=== PATIENT | female | born 1985 | race Caucasian/White ===

== ENCOUNTER → 2019-10-17 14:48 | Outpatient (BNVA) | payer MEDICAID, SELFPAY | PROVIDERS: Family Provider Nurse Practitioner Family; Visit Provider Psychiatry & Neurology Psychiatry | DX: F41.1 Generalized anxiety disorder (principal); F11.20 Opioid dependence, uncomplicated; F12.20 Cannabis dependence, uncomplicated; F17.200 Nicotine dependence, unspecified, uncomplicated; F33.2 Major depressive disorder, recurrent severe without psychotic features; F43.12 Post-traumatic stress disorder, chronic | CPT/HCPCS: 99204 ==

== ENCOUNTER → 2019-10-21 09:12 | Outpatient (BNVA) | payer MEDICAID, SELFPAY | PROVIDERS: Family Provider Nurse Practitioner Family; Visit Provider Psychiatry & Neurology Psychiatry | DX: F12.20 Cannabis dependence, uncomplicated (principal); F11.20 Opioid dependence, uncomplicated; F17.200 Nicotine dependence, unspecified, uncomplicated; F33.2 Major depressive disorder, recurrent severe without psychotic features; F41.1 Generalized anxiety disorder; F43.12 Post-traumatic stress disorder, chronic | CPT/HCPCS: 99213 ==

== ENCOUNTER → 2019-11-04 08:30 | Outpatient (BNVA) | payer MEDICAID, SELFPAY | PROVIDERS: Family Provider Nurse Practitioner Family; Visit Provider Psychiatry & Neurology Psychiatry | DX: F33.2 Major depressive disorder, recurrent severe without psychotic features (principal); F43.12 Post-traumatic stress disorder, chronic; F12.20 Cannabis dependence, uncomplicated; F11.20 Opioid dependence, uncomplicated; F17.200 Nicotine dependence, unspecified, uncomplicated; F41.1 Generalized anxiety disorder | CPT/HCPCS: 99214 ==

== ENCOUNTER → 2019-12-01 08:26 | Outpatient (BNVA) | payer MEDICAID, SELFPAY | PROVIDERS: Family Provider Nurse Practitioner Family; Visit Provider Psychiatry & Neurology Psychiatry | DX: F43.12 Post-traumatic stress disorder, chronic (principal); F33.2 Major depressive disorder, recurrent severe without psychotic features; F11.20 Opioid dependence, uncomplicated; F17.200 Nicotine dependence, unspecified, uncomplicated; F12.20 Cannabis dependence, uncomplicated; F41.1 Generalized anxiety disorder | CPT/HCPCS: 99213 ==

== ENCOUNTER → 2019-12-02 14:58 | Outpatient (BNVA) | payer MEDICAID, SELFPAY | PROVIDERS: Family Provider Nurse Practitioner Family; Visit Provider Psychiatry & Neurology Psychiatry | DX: F11.20 Opioid dependence, uncomplicated (principal) | CPT/HCPCS: 80306 ==

== ENCOUNTER → 2019-12-14 08:23 | Outpatient (BNVA) | payer MEDICAID, SELFPAY | PROVIDERS: Family Provider Nurse Practitioner Family; Visit Provider Psychiatry & Neurology Psychiatry | DX: F33.2 Major depressive disorder, recurrent severe without psychotic features (principal); F41.1 Generalized anxiety disorder; F17.200 Nicotine dependence, unspecified, uncomplicated; F43.12 Post-traumatic stress disorder, chronic | CPT/HCPCS: 99213 ==

== ENCOUNTER 2020-01-27 07:11 | Outpatient (CLI) | payer MEDICAID, SELFPAY ==
--- NOTE | 2020-01-27 07:26 | USCV_ITS ---
Oneida Sampson Age: 34 Gender: F : 1985 Exam Date: 01/27/2020 07:44 Ordering Phys: Travis Freeman MD ([email or web address]) Technologist: Penny Kendrick Exam Location: [facility] [place] Indication: TRICUSPID ENDOCARDITIS WITH BOVINE VALVE REPLACEMENT BP: / HR: 50 Rhythm: Sinus Technical Quality: Adequate MEASUREMENTS (Male / Female) Normal Values 2D ECHO LV Diastolic Diameter PLAX 3.8 cm 4.2 - 5.9 / 3.9 - 5.3 cm LV Systolic Diameter PLAX 3.1 cm LV Chamber Size 3.1 cm IVS Diastolic Thickness 0.9 cm 0.6 - 1.0 / 0.6 - 0.9 cm IVS Systolic Thickness 1.0 cm LVPW Diastolic Thickness 0.8 cm 0.6 - 1.0 / 0.6 - 0.9 cm LVPW Systolic Thickness 1.0 cm RV Chamber Size 2.2 cm LVOT Diameter 2.0 cm LV Ejection Fraction 2D Teich 40.5 % LV Ejection Fraction MOD 2C 75.7 % LV Ejection Fraction 2C AL 75.3 % LA Diameter 2.4 cm LA Width 2.9 cm LA Height 3.5 cm RA Width 3.2 cm RA Height 3.7 cm Aorta at Sinotubular Diameter 2.6 cm M-MODE LV Diastolic Diameter MM 3.6 cm 4.2 - 5.9 / 3.9 - 5.3 cm LV Systolic Diameter MM 2.1 cm LV Ejection Fraction MM Teich 72.5 % IVS Diastolic Thickness MM 0.7 cm 0.6 - 1.0 / 0.6 - 0.9 cm IVS Systolic Thickness MM 1.2 cm LVPW Diastolic Thickness MM 1.0 cm 0.6 - 1.0 / 0.6 - 0.9 cm LVPW Systolic Thickness MM 1.1 cm RV Diastolic Diameter MM 1.4 cm Aortic Annulus Diameter 2.9 cm LA Ao Ratio MM 1.1 MV E Point Septal Separation 0.5 cm DOPPLER AV Peak Velocity 137.0 cm/s LVOT Peak Velocity 99.0 cm/s AV Area Cont Eq vti 2.6 cm squared AV Area Cont Eq pk 2.3 cm squared MV Area PHT 3.4 cm squared Mitral E to A Ratio 1.7 MV E' Velocity 49.5 cm/s Mitral E to MV E' Ratio 14.4 Mitral E to LV E' Lateral Ratio 13.4 Mitral E to LV E' Septal Ratio 15.9 TR Peak Velocity 248.4 cm/s TR Peak Gradient 24.7 mmHg TR Mean Velocity 180.3 cm/s TR Mean Gradient 14.1 mmHg TR Velocity Time Integral 79.3 cm TV Peak E Velocity 200.0 cm/s Right Atrial Pressure 8.0 mmHg Pulmonary Artery Systolic Pressu 32.7 mmHg PV Peak Velocity 50.0 cm/s RV Acceleration Time 0.1 s RV Ejection Time 0.3 s RV AcT/ET 0.4 FINDINGS Left Ventricle Normal left ventricular size and systolic function, EF 77 %. No regional wall motion abnormalities. Right Ventricle Normal right ventricular size and systolic function. Right Atrium Mildly increased right atrial size. Left Atrium Appears to be of normal size Mitral Valve Thickened mitral valve. Aortic Valve No gross abnormalities noted . Tricuspid Valve The bioprosthetic valve the tricuspid position appears to be well seated. Mild to moderate central regurgitation. Leaflet morphology could not be delineated well. The peak velocity across the tricuspid valve was 2.8 cm/s with a peak gradient of 33 and a mean gradient of 12 mmHg. Estimated pulmonary artery peak systolic pressure of 33 mmHg Pulmonic Valve No gross abnormalities noted Pericardium No pericardial effusion. Aorta Normal aortic annulus size. CONCLUSIONS The bioprosthetic valve the tricuspid position appears to be well seated. Mild to moderate central tricuspid valve regurgitation. Leaflet morphology could not be delineated well. The peak velocity across the tricuspid valve was 2.8 cm/s with a peak gradient of 33 and a mean gradient of 12 mmHg. Estimated pulmonary artery peak systolic pressure of 33 mmHg. No masses or vegetations noted. The right atrium is mildly dilated. Normal left ventricular size and systolic function, EF 77 %. No regional wall motion abnormalities. No previous studies available for comparison Dr Travis Freeman MD FACC (Electronically Signed) Final Date: 27 January 2020 17:55 S
== END 2020-01-27 07:12 | disposition home or self-care (01) ==
LOC: RAD 07:17
PROVIDERS: PCP Family Medicine; Visit Provider Internal Medicine Cardiovascular Disease
DX: I07.9 Rheumatic tricuspid valve disease, unspecified (principal)
CPT/HCPCS: 93306

== ENCOUNTER → 2020-04-02 15:42 | Outpatient (BNVA) | payer BC, MEDICAID, SELFPAY | PROVIDERS: PCP Family Medicine; Visit Provider Nurse Practitioner Family | DX: Z20.2 Contact with and (suspected) exposure to infections with a predominantly sexual mode of transmission (principal); B37.3 Candidiasis of vulva and vagina | CPT/HCPCS: 87491; 87591 ==

== ENCOUNTER 2024-01-15 18:35 | Emergency (ER) | payer SELFPAY ==
[2024-01-15 18:36] VITALS: BP 138/83; PULSE 55; RESP 18; TEMP 36.5; O2SAT 99; BMI 24.0
--- NOTE | 2024-01-15 18:58 | W.ED.GENADLT ---
HPI - General Adult General: Chief complaint: General Medical Stated complaint: withdrawal Time Seen by Provider: 01/15/24 18:49 Source: patient Mode of arrival: EMS (With police) Limitations: no limitations History of Present Illness: Patient is a 38-year-old female presenting to the emergency department planing of withdrawal symptoms today. States that she last had fentanyl 24 hours ago, is having diarrhea, nausea and vomiting, feeling feverish, and chills. States that she has withdrawal before and this is exactly how she felt. Also states she has been out of her Klonopin as she was recently arrested and they could not find her prescription. She states that she is attempting to contact her primary care to have this refilled. 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 No other symptoms at this time. MD complaint: Withdrawal symptoms, last used fentanyl 24 hours ago Associated symptoms: Reports nausea and vomiting; Deny chest pain, dyspnea, headache(s), rash or palpitations Related Data Home Medications Medication Instructions Recorded Confirmed aspirin 81 mg tablet,delayed 81 mg PO DAILY 11/03/19 06/29/20 release (Adult Aspirin Regimen) clonazepam 1 mg tablet (Klonopin) 1 mg PO BID 04/02/20 06/29/20 aripiprazole 5 mg tablet (Abilify) 5 mg PO DAILY 06/11/20 06/29/20 doxepin 25 mg capsule 25 mg PO TID 06/11/20 06/29/20 methadone 10 mg tablet 90 mg PO DAILY 06/11/20 06/29/20 Previous Rx's Medication Instructions Recorded mupirocin 2 % topical ointment 1 applic topical BID 7 days #15 06/29/20 grams Allergies Allergy/AdvReac Type Severity Reaction Status Date / Time vancomycin Allergy Intermediate rash Verified 06/29/20 15:28 Review of Systems General: Reports: 10 or more systems reviewed and unremarkable except in HPI and below Const: Reports: fever(s) (Subjective), chills and other (Withdrawal symptoms); Denies: fatigue Eyes: Denies: change in vision ENMT: Denies: throat pain, ear or mastoid pain or nasal discharge Card: Denies: chest pain, palpitations, swelling of feet/ankles or lightheadedness Resp: Denies: dyspnea, productive cough or wheezing GI: Reports: nausea, vomiting and diarrhea; Denies: abdominal pain or constipation : Denies: flank pain, difficulty voiding, dysuria or urinary frequency Musc: Denies: neck pain, back pain or joint pain Skin/Breast: Denies: rash Neuro: Denies: headache(s), numbness in extremities or weakness in extremities PFSH ED PFSH: Medical History Endocarditis of tricuspid valve Valvular heart disease Hepatitis C Palpitations Major depressive disorder Surgical History H/O tricuspid valve replacement Family History Grandmother CAD (coronary artery disease) Cancer Diabetes Lung disease Family/Other Cancer Grandfather Stroke Brother Suicide Other Hypertension Denies family history of Clotting disorder Dementia Chronic kidney disease (CKD) Anesthesia complication Bleeding disorder Social History Smoking and tobacco/nicotine status: current every day tobacco/nicotine user e-cigarettes Quit status (tobacco/nicotine): has tried quititng Number of times tried to quit tobacco: 1 Second hand smoke exposure: Yes Current gender identity: Female Physical Exam Const: COMMON NORMALS: patient oriented x3 and no limitations GENERAL APPEARANCE: cooperative, comfortable, well developed and anxious ORIENTATION/CONSCIOUSNESS: Yes awake, Yes oriented to person, Yes oriented to place and Yes oriented to time HENMT: COMMON NORMALS: normocephalic, atraumatic and hearing grossly normal bilaterally HEAD & SCALP: normocephalic and atraumatic Eye: COMMON NORMALS: Equal, round and reactive pupils present, EOMs intact bilaterally and conjunctivae normal CONJUNCTIVA: Yes conjunctivae normal PUPIL: Yes Equal, round and reactive pupils present Neck/C-Spine: COMMON NORMALS: full ROM, supple and no JVD Resp: COMMON NORMALS: normal respiratory effort, No retractions, No use of accessory muscles and clear to auscultation bilaterally AUSCULTATION: clear to auscultation bilaterally Cardio: COMMON NORMALS: no JVD, regular rate, regular rhythm, No clicks present (Cardio), No murmurs present (Cardio) and No rub (Cardio) RATE: regular rate RHYTHM: regular rhythm GI: COMMON NORMALS: Normal to inspection, nondistended, normoactive bowel sounds present, Soft to palpation and non-tender AUSCULTATION: Yes normoactive bowel sounds PALPATION: Yes Soft to palpation RECTAL EXAM: deferred Extremity: COMMON NORMALS: normal to inspection, full ROM and capillary refill normal Neuro: COMMON NORMALS: patient oriented x3, CN's II-XII intact bilaterally, moves all extremities, no focal motor deficits and no sensory deficits noted SENSORIUM/ORIENTATION: Yes oriented to person, Yes oriented to place and Yes oriented to time Psych: THOUGHT CONTENT: No Suicidality present, No Homicidality present and No Hallucination(s) present Skin: COMMON NORMALS: no rashes or lesions noted GENERAL SKIN EXAM: no rashes or lesions noted Course Vital Signs: Vital signs: Vital Signs Temperature 97.7 F 01/15/24 18:36 Pulse Rate 55 L 01/15/24 18:36 Respiratory Rate 18 01/15/24 18:36 Blood Pressure 138/83 01/15/24 18:36 Pulse Oximetry 99 01/15/24 18:36 Oxygen Delivery Me thod Room Air 01/15/24 18:36 MDM - General Adult Medical Decision Making Patient brought in accompanied by police for withdrawal symptoms, she was arrested so she last used fentanyl 24 hours ago. States that she has had the symptoms before, treated with Ativan and she will be discharged home with 1 Ativan to take if these get too severe again. However she will just need to come off of the opioids in her system, and she also needs to begin taking her Klonopin which she states she is attempting to refill with primary care. No suicidal or homicidal ideations or other psychiatric abnormalities that would warrant calling psychiatrist, and no other concerning history at this time and she will be discharged back to [facility]. No radiology studies performed this visit Discharge Plan Discharge Patient Disposition: Home Clinical Impression: Opiate withdrawal Condition: Stable Prescriptions: No Action aripiprazole [Abilify] 5 mg tablet 5 mg PO DAILY doxepin 25 mg capsule 25 mg PO TID methadone 10 mg tablet 90 mg PO DAILY clonazepam [Klonopin] 1 mg tablet 1 mg PO BID mupirocin 2 % ointment 1 applic topical BID 7 Days Qty: 15 0RF aspirin [Adult Aspirin Regimen] 81 mg tablet,delayed release (DR/EC) 81 mg PO DAILY Discharge Orders: Discharge ED (Routine); Ordered 01/15/24 Ordered By: Alen Little Patient Instructions: Opioid Withdrawal (ED) Activity Restrictions/Additional Instructions: Please refill your Klonopin as discussed. Take extra Ativan at home if you are symptoms get too severe, and return with any thoughts of suicidal homicidal ideations, or other concerning withdrawal symptoms you may have. Coding Level of Care Code ED [employer] for [employer]
== END 2024-01-15 19:08 | disposition home or self-care (01) ==
PROVIDERS: Emergency Provider Physician Assistant
DX: F11.13 Opioid abuse with withdrawal (principal); Z79.82 Long term (current) use of aspirin; F17.290 Nicotine dependence, other tobacco product, uncomplicated
CPT/HCPCS: 99281

== ENCOUNTER 2024-01-21 02:44 | Emergency (ER) | payer SELFPAY ==
[2024-01-21 02:49] VITALS: BP 147/105; PULSE 50; RESP 16; TEMP 36.3; O2SAT 96; BMI 24.0
--- NOTE | 2024-01-21 02:50 | ED_ITS ---
HPI - General Adult General: Stated complaint: dental pain Time Seen by Provider: 01/21/24 02:45 History of Present Illness: 38-year-old female who presents to the e mergency room from detention. She says she has any history of endocarditis and her doctor told her she should be on antibiotics because her teeth are breaking off. She does have some poor dentition. Related Data Home Medications Medication Instructions Recorded Confirmed aspirin 81 mg tablet,delayed 81 mg PO DAILY 11/03/19 06/29/20 release (Adult Aspirin Regimen) clonazepam 1 mg tablet (Klonopin) 1 mg PO BID 04/02/20 06/29/20 aripiprazole 5 mg tablet (Abilify) 5 mg PO DAILY 06/11/20 06/29/20 doxepin 25 mg capsule 25 mg PO TID 06/11/20 06/29/20 methadone 10 mg tablet 90 mg PO DAILY 06/11/20 06/29/20 Previous Rx's Medication Instructions Recorded mupirocin 2 % topical ointment 1 applic topical BID 7 days #15 06/29/20 grams amoxicillin 500 mg tablet 500 mg PO BID 10 days #20 tabs 01/21/24 Allergies Allergy/AdvReac Type Severity Reaction Status Date / Time vancomycin Allergy Intermediate rash Verified 01/21/24 02:52 morphine Allergy Unknown Verified 01/21/24 02:52 Review of Systems Narrative: Constitutional symptoms: Negative except as documented in HPI. Skin symptoms: Negative except as documented in HPI. Eye symptoms: Negative except as documented in HPI. ENMT symptoms: Negative except as documented in HPI. Respiratory symptoms: Negative except as documented in HPI. Cardiovascular symptoms: Negative except as documented in HPI. Gastrointestinal symptoms: Negative except as documented in HPI. Genitourinary symptoms: Negative except as documented in HPI. Musculoskeletal symptoms: Negative except as documented in HPI. Neurologic symptoms: Negative except as documented in HPI. Psychiatric symptoms: Negative except as documented in HPI. Endocrine symptoms: Negative except as documented in HPI. PFSH ED PFSH: Medical History Endocarditis of tricuspid valve Valvular heart disease Hepatitis C Palpitations Major depressive disorder Surgical History H/O tricuspid valve replacement Family History Grandmother CAD (coronary artery disease) Cancer Diabetes Lung disease Family/Other Cancer Grandfather Stroke Brother Suicide Other Hypertension Denies family history of Clotting disorder Dementia Chronic kidney disease (CKD) Anesthesia complication Bleeding disorder Social History Smoking and tobacco/nicotine status: current every day tobacco/nicotine user e- cigarettes Quit status (tobacco/nicotine): has tried quititng Number of times tried to quit tobacco: 1 Second hand smoke exposure: Yes Current gender identity: Female Physical Exam Narrative: EXAM NARRATIVE: General: Alert, no acute distress. Skin: warm and dry Head: Normocephalic Neck: Trachea midline Eye: Extraocular movements are intact. Ears, nose, mouth and throat: Oral mucosa moist. Poor dentition Respiratory: Respirations are non-labored Musculoskeletal: Normal ROM Neurological: Alert and oriented, No focal neurological deficit observed. Psychiatric: Cooperative, appropriate mood & affect. MDM - General Adult Medical Decision Making Assessment and plan: Dental caries - Discharged home - Discussed plan with patient. Answered any questions. - Evaluation and treatment of this problem were appropriate in the emergency setting. No radiology studies performed this visit Discharge Plan Discharge Patient Disposition: Home Clinical Impression: Dental caries Condition: Stable Prescriptions: New amoxicillin 500 mg tablet 500 mg PO BID 10 Days Qty: 20 0RF No Action aripiprazole [Abilify] 5 mg tablet 5 mg PO DAILY doxepin 25 mg capsule 25 mg PO TID methadone 10 mg tablet 90 mg PO DAILY clonazepam [Klonopin] 1 mg tablet 1 mg PO BID mupirocin 2 % ointment 1 applic topical BID 7 Days Qty: 15 0RF aspirin [Adult Aspirin Regimen] 81 mg tablet,delayed release (DR/EC) 81 mg PO DAILY Discharge Orders: Discharge ED (Routine); Ordered 01/21/24 Ordered By: Mily Wick Discharge Diet: As Directed Discharge Activity: Increase activity as tolerated Patient Instructions: Opioid Safety, Pain Management Activity Restrictions/Additional Instructions: Please follow-up with a dentist as soon as possible and with your primary care provider Thank you for choosing [facility] for your healthcare needs today. Please realize this is an emergency room and that we are providing you with a medical screening exam and this may not be complete and all inclusive of all the testing and or work up that you may need to determine your ailment or severity of your illness. You have been screened and evaluated and felt safe for discharge. Health conditions do change or evolve sometimes and as such it is important that you follow up with your Primary Doctor to be re checked, 3-5 days is a general good time frame for follow up. You are always welcome to return to the ED for re assessment if your symptoms are worsening or you have new concerns Coding Level of Care Code ED [employer] for [employer]
[2024-01-21 02:56] VITALS: BP 147/105; PULSE 51; RESP 18; O2SAT 100
[2024-01-21] MEDS: amoxicillin 500 mg Capsule PO (02:57)
[2024-01-21 03:00] VITALS: BP 134/77; PULSE 50; RESP 18; O2SAT 100
[2024-01-21 03:12] VITALS: BP 134/77; PULSE 54; O2SAT 99
== END 2024-01-21 03:15 | disposition home or self-care (01) ==
PROVIDERS: Emergency Provider Emergency Medicine
DX: K02.9 Dental caries, unspecified (principal); Z79.82 Long term (current) use of aspirin; F17.290 Nicotine dependence, other tobacco product, uncomplicated
CPT/HCPCS: 99283

== ENCOUNTER 2024-02-02 04:33 | Emergency (ER) | payer SELFPAY ==
[2024-02-02] VITALS (8 sets, daily range): BP systolic 113–135; BP diastolic 78–97; PULSE 55–102; RESP 16–20; TEMP 36.6; O2SAT 95–100; BMI 23.6
--- NOTE | 2024-02-02 04:37 | XRR_ITS ---
PROCEDURE INFORMATION: Exam: XR Chest Exam date and time: 02/02/2024 5:03 AM Age: 38 years old Clinical indication: Pain; Chest pressure; Prior surgery; Surgery date: 6+ months; Surgery type: Tricuspid valve replaced in 2017; Additional info: Chest pain TECHNIQUE: Imaging protocol: Radiologic exam of the chest. Views: 1 view. COMPARISON: CR XR cervical spine 3V* [id number] 04/04/2017 1:07 AM FINDINGS: Lungs: Unremarkable. No consolidation. Pleural spaces: Unremarkable. No pleural effusion. No pneumothorax. Heart/Mediastinum: Unremarkable. No cardiomegaly. Bones/joints: Unremarkable. XR/XR chest 1V portable [id number] IMPRESSION: No acute findings.
--- NOTE | 2024-02-02 04:37 | ECG_ITS ---
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 Measurements Intervals [place] Rate: 56 P: 47 NM: 122 QRS: 61 QRSD: 89 T: -4 QT: 442 QTc: 429 Interpretive Statements SINUS BRADYCARDIA POSSIBLE RIGHT VENTRICULAR CONDUCTION DELAY [RSR (QR) IN V1/V2] MODERATE T-WAVE ABNORMALITY, CONSIDER ANTEROLATERAL ISCHEMIA [-0.1+ mV T-WAVE IN V3-V6] Compared to ECG 09/18/2017 00:28:25 Sinus rhythm no longer present Short NM interval no longer present Incomplete right bundle-branch block no longer present T-wave abnormality still present Possible ischemia still present Electronically Signed On 02-03-2024 19:09:58 FRONT COUNTER CLERK by Travis Freeman M.D. [id number]
--- NOTE | 2024-02-02 04:39 | ED_ITS ---
Documented by User: Mily Wick MD 02/02/24 05:06 HPI - Chest Pain 2 General: Chief Complaint: Chest Pain Stated Complaint: CHEST PAIN Time Seen by Provider: 02/02/24 04:33 History of Present Illness: 38-year-old female with a history of rem ote endocarditis who [facility] with [facility]. She was seen yesterday in urgent care and started on doxycycline for some infection on her leg. Apparently that has not been picked up yet. Denies she has had chest pain for an hour or 2. Left lower chest. Sharp with some pressure. No fevers. No cough. Related Data Home Medications Medication Instructions Recorded Confirmed clonazepam 1 mg tablet (Klonopin) 1 mg PO BID 04/02/20 02/02/24 Previous Rx's Medication Instructions Recorded doxycycline monohydrate 100 mg 100 mg PO BID 14 days #28 caps 02/01/24 capsule Allergies Allergy/AdvReac Type Severity Reaction Status Date / Time vancomycin Allergy Intermediate rash Verified 02/02/24 04:38 morphine Allergy Unknown Verified 02/02/24 04:38 Review of Systems 2 Narrative: Constitutional symptoms: Negative except as documented in HPI. Skin symptoms: Negative except as documented in HPI. Eye symptoms: Negative except as documented in HPI. ENMT symptoms: Negative except as documented in HPI. Respiratory symptoms: Negative except as documented in HPI. Cardiovascular symptoms: Negative except as documented in HPI. Gastrointestinal symptoms: Negative except as documented in HPI. Genitourinary symptoms: Negative except as documented in HPI. Musculoskeletal symptoms: Negative except as documented in HPI. Neurologic symptoms: Negative except as documented in HPI. Psychiatric symptoms: Negative except as documented in HPI. Endocrine symptoms: Negative except as documented in HPI. PFSH ED 2 PFSH: Medical History (Updated 02/02/24 @ 07:10 by Tone Menchaca MD) Hx MRSA infection Endocarditis of tricuspid valve Valvular heart disease Hepatitis C Palpitations Major depressive disorder Surgical History H/O tricuspid valve replacement Family History Grandmother CAD (coronary artery disease) Cancer Diabetes Lung disease Family/Other Cancer Grandfather Stroke Brother Suicide Other Hypertension Denies family history of Clotting disorder Dementia Chronic kidney disease (CKD) Anesthesia complication Bleeding disorder Social History Smoking and tobacco/nicotine status: never used tobacco/nicotine Quit status (tobacco/nicotine): has tried quititng Number of times tried to quit tobacco: 1 Second hand smoke exposure: Yes Current gender identity: Female Physical Exam 2 Narrative: EXAM NARRATIVE: General: Alert, no acute distress. Skin: Warm, dry. Head: Normocephalic, atraumatic. Neck: Supple, trachea midline. Eye: Extraocular movements are intact. Ears, nose, mouth and throat: mucosa moist. Cardiovascular: Regular, Normal peripheral perfusion. Respiratory: Lungs are clear to auscultation, respirations are non-labored, breath sounds are equal, Symmetrical chest wall expansion. Gastrointestinal: Soft, Nontender, Non distended Musculoskeletal: Normal ROM, no deformity. Neurological: Alert and oriented, No focal neurological deficit observed. Psychiatric: Cooperative, appropriate mood & affect. Course 2 Vital Signs: Vital signs: Vital Signs Temperature 97.9 F 02/02/24 04:34 Pulse Rate 66 02/02/24 06:15 Respiratory Rate 20 H 02/02/24 06:15 Blood Pressure 121/82 02/02/24 06:15 Pulse Oximetry 95 02/02/24 06:15 Oxygen Delivery Me thod Room Air 02/02/24 06:15 MDM - Chest Pain Medical Decision Making Differential diagnosis for patient with chest pain includes but is not limited to and based on the above HPI, review of systems and physical exam: Pneumonia. unstable angina. angina. Acute coronary syndrome / [place]. Pulmonary embolism. Costochondritis / musculoskeletal. Pleurisy. Pericarditis. Esophageal spasm. Pancreatis. Cholecystitis. Orders placed to evaluate differential diagnosis based on the above differential, HPI and physical exam EKG: Time 4:40 AM. Rate 56. Sinus bradycardia, nonspecific ST-T changes, no ectopy, normal AR & QRS intervals, This was reviewed and interpreted by myself the ER physician at 4:45 AM Lab Review: Laboratory results were reviewed and interpreted by myself the emergency room physician. I reviewed the patient's medical record. Reexamination: Lab Data 02/02/24 04:57 02/02/24 04:57 Radiology Impressions Chest X-Ray 02/02/24 04:37 IMPRESSION: No acute findings. Laboratory Results WBC 7.96 10^3/uL (3.29-11.43) 02/02/24 04:57 RBC 5.46 10^6/uL (3.85-5.65) 02/02/24 04:57 Hgb 15.30 g/dL (11.27-16.99) 02/02/24 04:57 Hct 47.4 % (36-47) H 02/02/24 04:57 MCV 86.8 fl (85-98) 02/02/24 04:57 MCH 28.0 pg (27-33) 02/02/24 04:57 MCHC 32.3 g/dL (30-55) 02/02/24 04:57 RDW 13.6 % (12.1-15.1) 02/02/24 04:57 Plt Count 337 10^3/cmm (157-399) 02/02/24 04:57 MPV 10.4 fL (7.4-10.4) 02/02/24 04:57 Neut % (Auto) 56.1 % 02/02/24 04:57 Lymph % (Auto) 32.2 % 02/02/24 04:57 [place] % (Auto) 9.0 % 02/02/24 04:57 Eos % (Auto) 1.5 % 02/02/24 04:57 Baso % (Auto) 1.1 % 02/02/24 04:57 Neut # (Auto) 4.46 10^3/uL (1.8-7.7) 02/02/24 04:57 Lymph # (Auto) 2.6 10^3/uL (0.8-4.8) 02/02/24 04:57 [place] # (Auto) 0.7 10^3/uL (0.2-0.9) 02/02/24 04:57 Eos # (Auto) 0.1 10^3/uL (0.0-0.8) 02/02/24 04:57 Baso # (Auto) 0.1 10^3/uL (0.0-0.1) 02/02/24 04:57 Nucleated RBC % (auto) 0 % 02/02/24 04:57 Nucleated RBCs # 0.0 /100WBC 02/02/24 04:57 Sodium 139 mmol/L (136-145) 02/02/24 04:57 Potassium 3.9 mmol/L (3.5-5.1) 02/02/24 04:57 Chloride 104 mmol/L (98-107) 02/02/24 04:57 Carbon Dioxide 23 mmol/L (22-29) 02/02/24 04:57 Anion Gap 15.9 (5-19) 02/02/24 04:57 BUN 19 mg/dL (6-20) 02/02/24 04:57 Creatinine 0.7 mg/dL (0.5-0.9) 02/02/24 04:57 GFR Calculation 92.7 mL/min (90-130) 02/02/24 04:57 Glucose 87 mg/dL (65-115) 02/02/24 04:57 Calculated Osmolality 290 mOsm/kg (285-295) 02/02/24 04:57 Calcium 9.6 mg/dL (8.5-10.5) 02/02/24 04:57 Total Bilirubin 0.5 mg/dL (0.15-1.2) 02/02/24 04:57 AST 25 U/L (0-32) 02/02/24 04:57 ALT 34 U/L (0-33) H 02/02/24 04:57 Alkaline Phosphatase 92 U/L (35-105) 02/02/24 04:57 Troponin T Baseline < 6 ng/L (0-10) 02/02/24 04:57 Troponin T 120 Minute 6.00 ng/L (0-10) 02/02/24 06:42 Delta Troponin T 0.98280 ABS# (0-10) 02/02/24 06:42 C-Reactive Protein 3.0 mg/L (0.0-4.9) 02/02/24 04:57 Total Protein 7.6 g/dL (6.6-8.7) 02/02/24 04:57 Albumin 4.6 g/dL (3.5-5.2) 02/02/24 04:57 Globulin 3.0 g/dL (1.3-4.6) 02/02/24 04:57 Discharge Plan Discharge Patient Disposition: Home Clinical Impression: Chest pain Condition: Stable Prescriptions: No Action clonazepam [Klonopin] 1 mg tablet 1 mg PO BID doxycycline monohydrate 100 mg capsule 100 mg PO BID 14 Days Qty: 28 0RF Discharge Orders: Discharge ED (Routine); Ordered 02/02/24 Ordered By: Tone Menchaca Discharge Diet: Advance as tolerated Discharge Activity: Resume usual activity Patient Instructions: Chest Pain (ED) Coding Level of Care Code ED Technical Services Analyst for [place] [employer] Documented by User: Tone Menchaca MD 02/02/24 07:17 HPI - Chest Pain 2 General: Chief Complaint: Chest Pain Stated Complaint: CHEST PAIN Time Seen by Provider: 02/02/24 04:33 Related Data Home Medications Medication Instructions Recorded Confirmed clonazepam 1 mg tablet (Klonopin) 1 mg PO BID 04/02/20 02/02/24 Previous Rx's Medication Instructions Recorded doxycycline monohydrate 100 mg 100 mg PO BID 14 days #28 caps 02/01/24 capsule Allergies Allergy/AdvReac Type Severity Reaction Status Date / Time vancomycin Allergy Intermediate rash Verified 02/02/24 04:38 morphine Allergy Unknown Verified 02/02/24 04:38 PFSH ED 2 PFSH: Medical History (Updated 02/02/24 @ 07:10 by Tone Menchaca MD) Hx MRSA infection Endocarditis of tricuspid valve Valvular heart disease Hepatitis C Palpitations Major depressive disorder Surgical History H/O tricuspid valve replacement Family History Grandmother CAD (coronary artery disease) Cancer Diabetes Lung disease Family/Other Cancer Grandfather Stroke Brother Suicide Other Hypertension Denies family history of Clotting disorder Dementia Chronic kidney disease (CKD) Anesthesia complication Bleeding disorder Social History Smoking and tobacco/nicotine status: never used tobacco/nicotine Quit status (tobacco/nicotine): has tried quititng Number of times tried to quit tobacco: 1 Second hand smoke exposure: Yes Current gender identity: Female Course 2 Vital Signs: Vital signs: Vital Signs Temperature 97.9 F 02/02/24 04:34 Pulse Rate 66 02/02/24 06:15 Respiratory Rate 20 H 02/02/24 06:15 Blood Pressure 121/82 02/02/24 06:15 Pulse Oximetry 95 02/02/24 06:15 Oxygen Delivery Me thod Room Air 02/02/24 06:15 MDM - Chest Pain Medical Decision Making Differential diagnosis for patient with chest pain includes but is not limited to and based on the above HPI, review of systems and physical exam: Pneumonia. unstable angina. angina. Acute coronary syndrome / [place]. Pulmonary embolism. Costochondritis / musculoskeletal. Pleurisy. Pericarditis. Esophageal spasm. Pancreatis. Cholecystitis. Orders placed to evaluate differential diagnosis based on the above differential, HPI and physical exam EKG: Time 4:40 AM. Rate 56. Sinus bradycardia, nonspecific ST-T changes, no ectopy, normal AR & QRS intervals, This was reviewed and interpreted by myself the ER physician at 4:45 AM Lab Review: Laboratory results were reviewed and interpreted by myself the emergency room physician. I reviewed the patient's medical record. Patient is troponins here are negative no signs of ACS no signs of pulmonary embolism or dissection she is stable for discharge back to prison continue antibiotics for her cellulitis Lab Data 02/02/24 04:57 02/02/24 04:57 Radiology Impressions Chest X-Ray 02/02/24 04:37 IMPRESSION: No acute findings. Laboratory Results WBC 7.96 10^3/uL (3.29-11.43) 02/02/24 04:57 RBC 5.46 10^6/uL (3.85-5.65) 02/02/24 04:57 Hgb 15.30 g/dL (11.27-16.99) 02/02/24 04:57 Hct 47.4 % (36-47) H 02/02/24 04:57 MCV 86.8 fl (85-98) 02/02/24 04:57 MCH 28.0 pg (27-33) 02/02/24 04:57 MCHC 32.3 g/dL (30-55) 02/02/24 04:57 RDW 13.6 % (12.1-15.1) 02/02/24 04:57 Plt Count 337 10^3/cmm (157-399) 02/02/24 04:57 MPV 10.4 fL (7.4-10.4) 02/02/24 04:57 Neut % (Auto) 56.1 % 02/02/24 04:57 Lymph % (Auto) 32.2 % 02/02/24 04:57 [place] % (Auto) 9.0 % 02/02/24 04:57 Eos % (Auto) 1.5 % 02/02/24 04:57 Baso % (Auto) 1.1 % 02/02/24 04:57 Neut # (Auto) 4.46 10^3/uL (1.8-7.7) 02/02/24 04:57 Lymph # (Auto) 2.6 10^3/uL (0.8-4.8) 02/02/24 04:57 [place] # (Auto) 0.7 10^3/uL (0.2-0.9) 02/02/24 04:57 Eos # (Auto) 0.1 10^3/uL (0.0-0.8) 02/02/24 04:57 Baso # (Auto) 0.1 10^3/uL (0.0-0.1) 02/02/24 04:57 Nucleated RBC % (auto) 0 % 02/02/24 04:57 Nucleated RBCs # 0.0 /100WBC 02/02/24 04:57 Sodium 139 mmol/L (136-145) 02/02/24 04:57 Potassium 3.9 mmol/L (3.5-5.1) 02/02/24 04:57 Chloride 104 mmol/L (98-107) 02/02/24 04:57 Carbon Dioxide 23 mmol/L (22-29) 02/02/24 04:57 Anion Gap 15.9 (5-19) 02/02/24 04:57 BUN 19 mg/dL (6-20) 02/02/24 04:57 Creatinine 0.7 mg/dL (0.5-0.9) 02/02/24 04:57 GFR Calculation 92.7 mL/min (90-130) 02/02/24 04:57 Glucose 87 mg/dL (65-115) 02/02/24 04:57 Calculated Osmolality 290 mOsm/kg (285-295) 02/02/24 04:57 Calcium 9.6 mg/dL (8.5-10.5) 02/02/24 04:57 Total Bilirubin 0.5 mg/dL (0.15-1.2) 02/02/24 04:57 AST 25 U/L (0-32) 02/02/24 04:57 ALT 34 U/L (0-33) H 02/02/24 04:57 Alkaline Phosphatase 92 U/L (35-105) 02/02/24 04:57 Troponin T Baseline < 6 ng/L (0-10) 02/02/24 04:57 Troponin T 120 Minute 6.00 ng/L (0-10) 02/02/24 06:42 Delta Troponin T 0.98470 ABS# (0-10) 02/02/24 06:42 C-Reactive Protein 3.0 mg/L (0.0-4.9) 02/02/24 04:57 Total Protein 7.6 g/dL (6.6-8.7) 02/02/24 04:57 Albumin 4.6 g/dL (3.5-5.2) 02/02/24 04:57 Globulin 3.0 g/dL (1.3-4.6) 02/02/24 04:57 All radiology interpretation(s) finalized by discharge Discharge Plan Discharge Patient Disposition: Home Clinical Impression: Chest pain Condition: Stable Prescriptions: No Action clonazepam [Klonopin] 1 mg tablet 1 mg PO BID doxycycline monohydrate 100 mg capsule 100 mg PO BID 14 Days Qty: 28 0RF Discharge Orders: Discharge ED (Routine); Ordered 02/02/24 Ordered By: Tone Menchaca Discharge Diet: Advance as tolerated Discharge Activity: Resume usual activity Patient Instructions: Chest Pain (ED) Coding Level of Care Code ED Technical Services Analyst for [place]
[2024-02-02 05:03] LABS: Basophils # 0.1 10^3/uL (0.0-0.1); Basophils % 1.1 %; Eosinophils # 0.1 10^3/uL (0.0-0.8); Eosinophils % 1.5 %; Hematocrit 47.4 % (36-47); Lymphocytes # 2.6 10^3/uL (0.8-4.8); Lymphocytes % 32.2 %; Mean Corpuscular HGB Conc 32.3 g/dL (30-55); Mean Corpuscular Volume 86.8 fl (85-98); Mean Platelet Volume 10.4 fL (7.4-10.4); Monocytes # 0.7 10^3/uL (0.2-0.9); Neutrophils # 4.46 10^3/uL (1.8-7.7); Neutrophils % 56.1 %; Nucleated Red Blood Cells % 0 %; Platelet Count 337 10^3/cmm (157-399); Red Blood Count 5.46 10^6/uL (3.85-5.65); Red Cell Distribution Width 13.6 % (12.1-15.1); White Blood Count 7.96 10^3/uL (3.29-11.43)
[2024-02-02 05:22] LABS: Alanine Aminotransferase 34 U/L (0-33); Albumin Level 4.6 g/dL (3.5-5.2); Alkaline Phosphatase 92 U/L (35-105); Anion Gap 15.9 (5-19); Aspartate Amino Transferase 25 U/L (0-32); Blood Urea Nitrogen 19 mg/dL (6-20); Calcium 9.6 mg/dL (8.5-10.5); Carbon Dioxide 23 mmol/L (22-29); Chloride 104 mmol/L (98-107); Creatinine Clr Calc Pharmacy 97.5787; Glomerular Filtration Rate 92.7 mL/min (90-130); Glucose 87 mg/dL (65-115); Osmolality Calculated 290 mOsm/kg (285-295); Potassium 3.9 mmol/L (3.5-5.1); Sodium 139 mmol/L (136-145); Total Bilirubin 0.5 mg/dL (0.15-1.2); Total Protein 7.6 g/dL (6.6-8.7); Troponin(5th) Baseline < 6 ng/L (0-10)
[2024-02-02] MEDS: doxycycline 100 MG in sodium chloride 0.9% (plus) 100 ML IV (05:22)
[2024-02-02 07:07] LABS: Troponin 5 2HR Delta 0.00001 ABS# (0-10)
== END 2024-02-02 08:38 | disposition home or self-care (01) ==
PROVIDERS: Emergency Medicine; Emergency Provider Emergency Medicine
DX: R07.9 Chest pain, unspecified (principal)
CPT/HCPCS: 36415; 71045; 80053; 84484; 85025; 86140; 87040; 93005; 96365; 99285; J3490

== ENCOUNTER 2024-03-14 23:48 | Emergency (ER) | payer SELFPAY ==
[2024-03-14 23:50] VITALS: BP 119/70; PULSE 57; RESP 18; TEMP 36.6; O2SAT 99; BMI 23.1
--- NOTE | 2024-03-14 23:54 | ECG_ITS ---
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 Measurements Intervals [place] Rate: 55 P: 44 [place]: 123 QRS: 75 QRSD: 98 T: 22 QT: 477 QTc: 459 Interpretive Statements SINUS BRADYCARDIA WITH SINUS ARRHYTHMIA LOW QRS VOLTAGE IN PRECORDIAL LEADS [QRS DEFLECTION < 1.0 mV IN CHEST LEADS] POSSIBLE RIGHT VENTRICULAR CONDUCTION DELAY [RSR (QR) IN V1/V2] MODERATE T-WAVE ABNORMALITY, CONSIDER ANTERIOR ISCHEMIA [-0.1+ mV T-WAVE IN V3/V4] Compared to ECG 02/02/2024 04:40:35 Low QRS voltage now present T-wave abnormality still present Possible ischemia still present Electronically Signed On 03-15-2024 21:15:53 AUDIT CLERK by Joshua Rojas M.D. [email or web address]
--- NOTE | 2024-03-14 23:57 | ED_ITS ---
HPI - Chest Pain 2 General: Chief Complaint: Chest Pain Stated Complaint: CHEST PRESSURE Time Seen by Provider: 03/14/24 23:52 History of Present Illness: 38-year-old female who presents emergenc y room with substernal chest pain. Says it radiated into her neck. She is from [place]. She said she stood up and was about to go play cards and symptoms started. She was slightly bradycardic. She reports that she is always bradycardic. She was started on an aspirin a few days ago. No lower extremity swelling. No altered mental status. No fevers. No cough. Pain was a pressure in her central chest. Related Data Home Medications Medication Instructions Recorded Confirmed clonazepam 1 mg tablet (Klonopin) 1 mg PO BID 04/02/20 02/02/24 Previous Rx's Medication Instructions Recorded doxycycline monohydrate 100 mg 100 mg PO BID 14 days #28 caps 02/01/24 capsule Allergies Allergy/AdvReac Type Severity Reaction Status Date / Time vancomycin Allergy Intermediate rash Verified 03/14/24 23:54 morphine Allergy Unknown Verified 03/14/24 23:54 Review of Systems 2 Narrative: Constitutional symptoms: Negative except as documented in HPI. Skin symptoms: Negative except as documented in HPI. Eye symptoms: Negative except as documented in HPI. ENMT symptoms: Negative except as documented in HPI. Respiratory symptoms: Negative except as documented in HPI. Cardiovascular symptoms: Negative except as documented in HPI. Gastrointestinal symptoms: Negative except as documented in HPI. Genitourinary symptoms: Negative except as documented in HPI. Musculoskeletal symptoms: Negative except as documented in HPI. Neurologic symptoms: Negative except as documented in HPI. Psychiatric symptoms: Negative except as documented in HPI. Endocrine symptoms: Negative except as documented in HPI. PFSH ED 2 PFSH: Medical History (Updated 03/15/24 @ 02:39 by Mily Wick MD) Hx MRSA infection Endocarditis of tricuspid valve Valvular heart disease Hepatitis C Palpitations Major depressive disorder Surgical History H/O tricuspid valve replacement Family History Grandmother CAD (coronary artery disease) Cancer Diabetes Lung disease Family/Other Cancer Grandfather Stroke Brother Suicide Other Hypertension Denies family history of Clotting disorder Dementia Chronic kidney disease (CKD) Anesthesia complication Bleeding disorder Social History Smoking and tobacco/nicotine status: never used tobacco/nicotine Quit status (tobacco/nicotine): has tried quititng Number of times tried to quit tobacco: 1 Second hand smoke exposure: Yes Current gender identity: Female Physical Exam 2 Narrative: EXAM NARRATIVE: General: Alert, no acute distress. Skin: Warm, dry. Head: Normocephalic, atraumatic. Neck: Supple, trachea midline. Eye: Extraocular movements are intact. Ears, nose, mouth and throat: mucosa moist. Cardiovascular: Regular, Normal peripheral perfusion. Respiratory: Lungs are clear to auscultation, respirations are non-labored, breath sounds are equal, Symmetrical chest wall expansion. Gastrointestinal: Soft, Nontender, Non distended Musculoskeletal: Normal ROM, no deformity. Neurological: Alert and oriented, No focal neurological deficit observed. Psychiatric: Cooperative, appropriate mood & affect. Course 2 Vital Signs: Vital signs: Vital Signs Temperature 97.9 F 03/14/24 23:50 Pulse Rate 64 03/15/24 01:15 Respiratory Rate 25 H 03/15/24 01:15 Blood Pressure 111/57 03/15/24 01:15 Pulse Oximetry 95 03/15/24 01:15 Oxygen Delivery Me thod Room Air 03/15/24 01:00 MDM - Chest Pain Medical Decision Making Differential diagnosis for patient with chest pain includes but is not limited to and based on the above HPI, review of systems and physical exam: Pneumonia. unstable angina. angina. Acute coronary syndrome / [place]. Pulmonary embolism. Costochondritis / musculoskeletal. Pleurisy. Pericarditis. Esophageal spasm. Pancreatis. Cholecystitis. Orders placed to evaluate differential diagnosis based on the above differential, HPI and physical exam EKG: Time 2355. Rate 55. Sinus bradycardia. No ST-T changes, no ectopy, normal NM & QRS intervals, This was reviewed and interpreted by myself the ER physician at 2358 Chest x-ray: No acute process. No infiltrate. No pneumothorax. This was reviewed and interpreted by myself the emergency room physician. I also reviewed the radiology report. Lab Review: Laboratory results were reviewed and interpreted by myself the emergency room physician. Lab work is unremarkable. No leukocytosis. No anemia. No renal failure. Serial cardiac markers are negative. I reviewed the patient's medical record. Reexamination: Patient remained stable. No increased work of breathing. No altered mental status. No focal motor deficits. Assessment and plan: Noncardiac chest pain - Discharged home - Discussed plan with patient. Answered any questions. - Evaluation and treatment of this problem were appropriate in the emergency setting. Lab Data 03/15/24 00:14 03/15/24 00:14 Radiology Impressions Chest X-Ray 03/15/24 00:22 IMPRESSION: No acute findings. Laboratory Results WBC 10.36 10^3/uL (3.29-11.43) 03/15/24 00:14 RBC 5.77 10^6/uL (3.85-5.65) H 03/15/24 00:14 Hgb 16.20 g/dL (11.27-16.99) 03/15/24 00:14 Hct 49.3 % (36-47) H 03/15/24 00:14 MCV 85.4 fl (85-98) 03/15/24 00:14 MCH 28.1 pg (27-33) 03/15/24 00:14 MCHC 32.9 g/dL (30-55) 03/15/24 00:14 RDW 13.2 % (12.1-15.1) 03/15/24 00:14 Plt Count 295 10^3/cmm (157-399) 03/15/24 00:14 MPV 10.3 fL (7.4-10.4) 03/15/24 00:14 Neut % (Auto) 74.5 % 03/15/24 00:14 Lymph % (Auto) 18.3 % 03/15/24 00:14 [place] % (Auto) 5.5 % 03/15/24 00:14 Eos % (Auto) 0.8 % 03/15/24 00:14 Baso % (Auto) 0.5 % 03/15/24 00:14 Neut # (Auto) 7.72 10^3/uL (1.8-7.7) H 03/15/24 00:14 Lymph # (Auto) 1.9 10^3/uL (0.8-4.8) 03/15/24 00:14 [place] # (Auto) 0.6 10^3/uL (0.2-0.9) 03/15/24 00:14 Eos # (Auto) 0.1 10^3/uL (0.0-0.8) 03/15/24 00:14 Baso # (Auto) 0.1 10^3/uL (0.0-0.1) 03/15/24 00:14 Nucleated RBC % (auto) 0 % 03/15/24 00:14 Nucleated RBCs # 0.0 /100WBC 03/15/24 00:14 Sodium 142 mmol/L (136-145) 03/15/24 00:14 Potassium 4.1 mmol/L (3.5-5.1) 03/15/24 00:14 Chloride 103 mmol/L (98-107) 03/15/24 00:14 Carbon Dioxide 24 mmol/L (22-29) 03/15/24 00:14 Anion Gap 19.1 (5-19) H 03/15/24 00:14 BUN 20 mg/dL (6-20) 03/15/24 00:14 Creatinine 0.8 mg/dL (0.5-0.9) 03/15/24 00:14 GFR Calculation 79.4 mL/min (90-130) L 03/15/24 00:14 Glucose 101 mg/dL (65-115) 03/15/24 00:14 Calculated Osmolality 297 mOsm/kg (285-295) H 03/15/24 00:14 Calcium 10.1 mg/dL (8.5-10.5) 03/15/24 00:14 Total Bilirubin 0.4 mg/dL (0.15-1.2) 03/15/24 00:14 AST 31 U/L (0-32) 03/15/24 00:14 ALT 37 U/L (0-33) H 03/15/24 00:14 Alkaline Phosphatase 93 U/L (35-105) 03/15/24 00:14 Troponin T Baseline < 6 ng/L (0-10) 03/15/24 00:14 Troponin T 120 Minute 6.00 ng/L (0-10) 03/15/24 02:09 Delta Troponin T 0.74689 ABS# (0-10) 03/15/24 02:09 Total Protein 7.7 g/dL (6.6-8.7) 03/15/24 00:14 Albumin 5.0 g/dL (3.5-5.2) 03/15/24 00:14 Globulin 2.7 g/dL (1.3-4.6) 03/15/24 00:14 All radiology interpretation(s) finalized by discharge Discharge Plan Discharge Patient Disposition: Home Clinical Impression: Non-cardiac chest pain Condition: Stable Prescriptions: No Action clonazepam [Klonopin] 1 mg tablet 1 mg PO BID doxycycline monohydrate 100 mg capsule 100 mg PO BID 14 Days Qty: 28 0RF Discharge Orders: Discharge ED (Routine); Ordered 03/15/24 Ordered By: Mily Wick Referrals: Sue Macias, RICH [Nurse Practitioner] - Discharge Diet: Usual diet Discharge Activity: Increase activity as tolerated Patient Instructions: Noncardiac Chest Pain (ED), Opioid Safety, Pain Management Activity Restrictions/Additional Instructions: Thank you for choosing [facility] for your healthcare needs today. Please realize this is an emergency room and that we are providing you with a medical screening exam and this may not be complete and all inclusive of all the testing and or work up that you may need to determine your ailment or severity of your illness. You have been screened and evaluated and felt safe for discharge. Health conditions do change or evolve sometimes and as such it is important that you follow up with your Primary Doctor to be re checked, 3-5 days is a general good time frame for follow up. You are always welcome to return to the ED for re assessment if your symptoms are worsening or you have new concerns Coding Level of Care Code ED Splitter Hand for [place]
[2024-03-15] VITALS (7 sets, daily range): BP systolic 90–111; BP diastolic 54–70; PULSE 57–66; RESP 21–26; O2SAT 95–99
[2024-03-15 00:20] LABS: Basophils # 0.1 10^3/uL (0.0-0.1); Basophils % 0.5 %; Eosinophils # 0.1 10^3/uL (0.0-0.8); Eosinophils % 0.8 %; Hematocrit 49.3 % (36-47); Lymphocytes # 1.9 10^3/uL (0.8-4.8); Lymphocytes % 18.3 %; Mean Corpuscular HGB Conc 32.9 g/dL (30-55); Mean Corpuscular Hemoglobin 28.1 pg (27-33); Mean Corpuscular Volume 85.4 fl (85-98); Mean Platelet Volume 10.3 fL (7.4-10.4); Monocytes # 0.6 10^3/uL (0.2-0.9); Monocytes % 5.5 %; Neutrophils # 7.72 10^3/uL (1.8-7.7); Neutrophils % 74.5 %; Nucleated Red Blood Cells % 0 %; Platelet Count 295 10^3/cmm (157-399); Red Blood Count 5.77 10^6/uL (3.85-5.65); Red Cell Distribution Width 13.2 % (12.1-15.1); White Blood Count 10.36 10^3/uL (3.29-11.43)
--- NOTE | 2024-03-15 00:22 | XRR_ITS ---
PROCEDURE INFORMATION: Exam: XR Chest Exam date and time: 03/15/2024 12:22 AM Age: 38 years old Clinical indication: Pain; Chest pressure; Prior surgery; Surgery date: 6+ months; Surgery type: 2017 tricuspid valve replacement; Additional info: Chest pain TECHNIQUE: Imaging protocol: Radiologic exam of the chest. Views: 1 view. COMPARISON: CR (CHEST, ) 02/02/2024 5:03 AM FINDINGS: Lungs: Unremarkable. No consolidation. Pleural spaces: Unremarkable. No pleural effusion. No pneumothorax. Heart/Mediastinum: Unremarkable. No cardiomegaly. Bones/joints: Unremarkable. XR/XR chest 1V portable [id number] IMPRESSION: No acute findings.
[2024-03-15 00:36] LABS: Troponin(5th) Baseline < 6 ng/L (0-10)
[2024-03-15 00:39] LABS: Alanine Aminotransferase 37 U/L (0-33); Alkaline Phosphatase 93 U/L (35-105); Anion Gap 19.1 (5-19); Aspartate Amino Transferase 31 U/L (0-32); Blood Urea Nitrogen 20 mg/dL (6-20); Calcium 10.1 mg/dL (8.5-10.5); Carbon Dioxide 24 mmol/L (22-29); Chloride 103 mmol/L (98-107); Globulin 2.7 g/dL (1.3-4.6); Glomerular Filtration Rate 79.4 mL/min (90-130); Glucose 101 mg/dL (65-115); Osmolality Calculated 297 mOsm/kg (285-295); Potassium 4.1 mmol/L (3.5-5.1); Sodium 142 mmol/L (136-145); Total Bilirubin 0.4 mg/dL (0.15-1.2); Total Protein 7.7 g/dL (6.6-8.7)
--- NOTE | 2024-03-15 01:54 | ECG_ITS ---
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 Measurements Intervals [place] Rate: 53 P: 50 [place]: 129 QRS: 63 QRSD: 98 T: 23 QT: 474 QTc: 446 Interpretive Statements SINUS BRADYCARDIA LOW QRS VOLTAGE IN PRECORDIAL LEADS [QRS DEFLECTION < 1.0 mV IN CHEST LEADS] POSSIBLE RIGHT VENTRICULAR CONDUCTION DELAY [RSR (QR) IN V1/V2] NONSPECIFIC T-WAVE ABNORMALITY Compared to ECG 03/14/2024 23:55:15 Sinus arrhythmia no longer present Possible ischemia no longer present T-wave abnormality still present Electronically Signed On 03-15-2024 21:25:36 CUSTOMER CARE SPECIALIST by Joshua Rojas M.D. [email or web address]
[2024-03-15 02:34] LABS: Troponin 5 2HR Delta 0.00001 ABS# (0-10)
== END 2024-03-15 02:53 | disposition home or self-care (01) ==
PROVIDERS: Emergency Provider Emergency Medicine; PCP Family Medicine
DX: R07.89 Other chest pain (principal)
CPT/HCPCS: 71045; 80053; 84484; 85025; 93005; 99285

== ENCOUNTER 2024-05-07 22:35 | Emergency (ER) | payer OTHER, SELFPAY ==
[2024-05-07 22:42] VITALS: BP 156/106; PULSE 64; RESP 20; TEMP 36.7; O2SAT 98; BMI 27.9
--- NOTE | 2024-05-07 23:08 | ECG_ITS ---
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 Measurements Intervals [place] Rate: 96 P: 52 OR: 123 QRS: 83 QRSD: 96 T: -50 QT: 406 QTc: 513 Interpretive Statements SINUS RHYTHM WITH OCCASIONAL SUPRAVENTRICULAR PREMATURE COMPLEXES INCOMPLETE RIGHT BUNDLE BRANCH BLOCK [ ST DEVIATION AND MODERATE T-WAVE ABNORMALITY, CONSIDER ANTEROLATERAL ISCHEMIA ST DEVIATION AND MODERATE T-WAVE ABNORMALITY, CONSIDER INFERIOR ISCHEMIA Prolonged QTc 513 Compared to ECG 03/15/2024 02:05:55 Incomplete right bundle-branch block now present Possible ischemia now present Electronically Signed On 05-08-2024 12:08:49 BENZOL OPERATOR by Bertin Palmer M.D. [email or web address]
--- NOTE | 2024-05-07 23:20 | ED_ITS ---
HPI - Dental/Oral General: Chief complaint: Dental/Oral Stated complaint: HIGH BP Time Seen by Provider: 05/07/24 22:43 History of Present Illness: 2-year-old female presenting from [facility]. She has increased lower right-sided tooth pain and jaw swelling over the past week or so. She notes that her mouth feels full, with some fullness under her chin. No fever. She is able to swallow. Her voice is normal. She has been on antibiotics twice before for this tooth. She does have a history of a tricuspid valve repair. She is also been hypertensive lately, has not had a history of hypertension before. She is not . She has her tubes tied. Related Data Home Medications ?Medication ?Instructions ?Recorded ?Confirmed clonazepam 1 mg tablet (Klonopin) 1 mg PO BID 04/02/20 02/02/24 Previous Rx's ?Medication ?Instructions ?Recorded aspirin 81 mg tablet,delayed 81 mg PO DAILY #30 tabs 0 03/23/24 release (Adult Aspirin Regimen) clindamycin HCl 150 mg capsule 450 mg (3 x 150 mg) PO TID 7 days 03/23/24 #63 caps mirtazapine 15 mg tablet (Remeron) 15 mg PO DAILY #30 tabs 03/23/24 amlodipine 5 mg tablet 5 mg PO DAILY #30 tabs 05/07 amoxicillin 875 mg-potassium 1 tab PO BID #20 tabs 04/02 clavulanate 125 mg tablet ibuprofen 600 mg tablet 600 mg PO Q8H PRN pain #90 t abs 05/07/24 Allergies Allergy/AdvReac Type Severity Reaction Status Date / Time vancomycin Allergy Intermediate rash Verified 03/23/24 14:17 morphine Allergy Unknown Verified 03/23/24 14:17 [facility] ED PFSH: Medical History Psychiatric care Hx MRSA infection Endocarditis of tricuspid valve Valvular heart disease Hepatitis C Palpitations Major depressive disorder Surgical History H/O tricuspid valve replacement Family History Grandmother CAD (coronary artery disease) Cancer Diabetes Lung disease Family/Other Cancer Grandfather Stroke Brother Suicide Other Hypertension Denies family history of Clotting disorder Dementia Chronic kidney disease (CKD) Anesthesia complication Bleeding disorder Social History Smoking and tobacco/nicotine status: current every day tobacco/nicotine user e- cigarettes Quit status (tobacco/nicotine): has tried quititng Number of times tried to quit tobacco: 1 Second hand smoke exposure: Yes Current gender identity: Female Physical Exam Const: COMMON NORMALS: no acute distress GENERAL APPEARANCE: cooperative; not ill appearing and not frail appearing HENMT: COMMON NORMALS: atraumatic and Normal external nose present HEAD & SCALP: atraumatic FACE & SINUS: edema (Minimal right sided. Right sided submandibular tenderness) NOSE: Normal external nose present Eye: COMMON NORMALS: Equal, round and reactive pupils present and EOMs intact bilaterally PUPIL: Yes Equal, round and reactive pupils present Neck/C-Spine: GENERAL: Yes trachea midline Chest: CHEST: Yes Symmetrical chest wall rise Resp: COMMON NORMALS: normal respiratory effort, No retractions, No use of accessory muscles and clear to auscultation bilaterally AUSCULTATION: clear to auscultation bilaterally Cardio: COMMON NORMALS: regular rate and regular rhythm RATE: regular rate RHYTHM: regular rhythm GI: COMMON NORMALS: Normal to inspection, nondistended, normoactive bowel sounds present Extremity: COMMON NORMALS: no pedal edema Neuro: KEE COMA SCALE: document GCS findings Kee coma scale eye opening: Spontaneous Kee coma scale verbal response: Orientated [place] coma scale motor response: Obey commands Kee coma scale total score: 15 SENSORY EXAM: Yes extremities (intact) Psych: COMMON NORMALS: speech normal SPEECH: Yes normal speech Skin: COMMON NORMALS: no rashes or lesions noted GENERAL SKIN EXAM: no rashes or lesions noted Course Vital Signs: Vital signs: Vital Signs Temperature 98.1 F 05/07/24 22:42 Pulse Rate 61 05/07/24 23:38 Respiratory Rate 16 05/07/24 23:38 Blood Pressure 149/102 05/07/24 23:38 Pulse Oximetry 97 05/07/24 23:38 MDM - Dental/Oral Medical Decision Making Abscess present to the lower right molar. Some fullness in the submandibular space, but mild. Does not cross midline. Patient's voice is normal. She is able to swallow. She is able to open her mouth normally. Dexamethasone. Antibiotics. Anti-inflammatory pain medication. She needs dental follow-up, particularly with her history of tricuspid valve replacement. No radiology studies performed this visit Discharge Plan Discharge Patient Disposition: Home Clinical Impression: Dental abscess, Hypertension Condition: Stable Prescriptions: New amlodipine 5 mg tablet 5 mg PO DAILY Qty: 30 0RF amoxicillin-pot clavulanate 875-125 mg tablet 1 tab PO BID Qty: 20 0RF ibuprofen 600 mg tablet 600 mg PO Q8H PRN (Reason: pain) Qty: 90 0RF No Action clonazepam [Klonopin] 1 mg tablet 1 mg PO BID mirtazapine [Remeron] 15 mg tablet 15 mg PO DAILY Qty: 30 2RF aspirin [Adult Aspirin Regimen] 81 mg tablet,delayed release (DR/EC) 81 mg PO DAILY Qty: 30 2RF clindamycin HCl 150 mg capsule 450 mg PO TID 7 Days Qty: 63 0RF Discharge Orders: Discharge ED (Routine); Ordered 05/07/24 Ordered By: Car Barcenas Referrals: Tawnya Her DO [Primary Care Provider] - Patient Instructions: Dental Abscess (ED), Hypertension (ED), Opioid Safety, Pain Management Activity Restrictions/Additional Instructions: Check your blood pressure twice daily. Log numbers. Medication as directed. If blood pressure falls below 120/80, discontinue the medication. Antibiotics as directed. It is imperative given your history of heart valve disease, that you see a dentist as soon as possible.Return to the emergency room for continued swelling, feeling of fullness of your tongue, inability to open your mouth, fever despite 2-3 doses of antibiotics, shortness of breath, any other concerning symptoms. 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
[2024-05-07 23:38] VITALS: BP 149/102; PULSE 61; RESP 16; O2SAT 97
[2024-05-07] MEDS: dexamethasone 4 mg Tablet 10 MG PO (23:42)
[2024-05-07] MEDS: ketorolac 30 mg/mL INJ IM (23:42)
[2024-05-07] MEDS: amlodipine 10 mg Tablet PO (23:42)
[2024-05-07] MEDS: amoxicillin-clav 875-125 mg Tablet 1 TAB PO (23:42)
== END 2024-05-08 | disposition home or self-care (01) ==
PROVIDERS: Emergency Provider Emergency Medicine; PCP Family Medicine
DX: K04.7 Periapical abscess without sinus (principal); I10 Essential (primary) hypertension; Z79.82 Long term (current) use of aspirin; F17.290 Nicotine dependence, other tobacco product, uncomplicated
CPT/HCPCS: 93005; 96372; 99284; J1885; J8540

== ENCOUNTER 2024-07-07 10:08 | Emergency (ER) | payer BC, MEDICAID, SELFPAY ==
--- NOTE | 2024-07-07 10:19 | XR_ITS ---
WS: [id number] Left ankle, 3 views, 07/07/2024 Clinical Data: trauma Comparison: None. Findings: No fractures or dislocations are seen. The ankle mortise is normal. The talus and calcaneus are unremarkable. No soft tissue swelling over the medial or lateral malleolus is seen. XR/XR ankle LT min 3V* [id number] Impression: Negative left ankle.
[2024-07-07 10:20] VITALS: BP 152/86; PULSE 60; RESP 18; TEMP 36.7; O2SAT 98
--- NOTE | 2024-07-07 10:48 | W.ED.EXTPRO ---
HPI - Extremity Problem General: Chief complaint: Extremity Problem,Nontraumatic Stated complaint: left ankle swollen Time Seen by Provider: 07/07/24 10:19 History of Present Illness: 39 female presents emergency room complaining of swelling of her left ankle. She localizes it to the lateral portion of the ankle inferior and posterior to the lateral malleolus. She is concerned there may be some swelling or related to her over the swelling anywhere else in the foot. She relates it has been just uncomfortable. No trauma or injury that she can recall. States has been present for about the last 4 days. No chest pain no shortness of breath. Associated symptoms: Deny chest pain, fever(s) or rash Related Data Home Medications ?Medication ?Instructions ?Recorded ?Confirmed hydroxyzine HCl 50 mg tablet 100 mg PO BEDTIME PRN insomnia 07/07/24 07/07/24 Previous Rx's ?Medication ?Instructions ?Recorded ibuprofen 600 mg tablet 600 mg PO Q8H PRN pain #90 tabs 05/07/24 buspirone 10 mg tablet 10 mg PO BID #60 tabs 05/31/24 duloxetine 30 mg capsule,delayed 30 mg PO DAILY #30 caps 05/31/24 release mirtazapine 15 mg tablet (Remeron) 15 mg PO DAILY #30 tabs 05/31/24 amlodipine 5 mg tablet 5 mg PO BID #180 tabs 06/01/24 aspirin 81 mg tablet,delayed 81 mg PO DAILY #30 tabs 06/05/24 release (Adult Aspirin Regimen) diclofenac sodium 75 mg 75 mg PO Q12H PRN pain #20 tabs 07/07/24 tablet,delayed release Allergies Allergy/AdvReac Type Severity Reaction Status Date / Time vancomycin Allergy Intermediate rash Verified 06/01/24 15:13 morphine Allergy Unknown Verified 06/01/24 15:13 Review of Systems Const: Denies: fever(s) or chills Card: Denies: chest pain Resp: Denies: dyspnea GI: Denies: abdominal pain : Denies: dysuria, urinary frequency or urinary urgency Musc: Denies: neck pain or back pain Skin/Breast: Denies: rash PFSH ED PFSH: Medical History History of CVA (cerebrovascular accident) Psychiatric care Hx MRSA infection Endocarditis of tricuspid valve Valvular heart disease Hepatitis C Palpitations Major depressive disorder Surgical History H/O tricuspid valve replacement Family History Grandmother CAD (coronary artery disease) Cancer Diabetes Lung disease Family/Other Cancer Grandfather Stroke Brother Suicide Other Hypertension Denies family history of Clotting disorder Dementia Chronic kidney disease (CKD) Anesthesia complication Bleeding disorder Social History Smoking and tobacco/nicotine status: current every day tobacco/nicotine user (vapes) e-cigarettes Quit status (tobacco/nicotine): has tried quititng Number of times tried to quit tobacco: 1 Second hand smoke exposure: Yes Current gender identity: Female Physical Exam Const: COMMON NORMALS: no acute distress GENERAL APPEARANCE: cooperative and comfortable ORIENTATION/CONSCIOUSNESS: Yes awake, Yes oriented to person, Yes oriented to place and Yes oriented to time HENMT: COMMON NORMALS: normocephalic, atraumatic and hearing grossly normal bilaterally HEAD & SCALP: normocephalic and atraumatic Resp: COMMON NORMALS: normal respiratory effort, No retractions, No use of accessory muscles and clear to auscultation bilaterally AUSCULTATION: clear to auscultation bilaterally Cardio: COMMON NORMALS: regular rate, regular rhythm and No murmurs present (Cardio) RATE: regular rate RHYTHM: regular rhythm Extremity: COMMON NORMALS: normal to inspection, capillary refill normal, no clubbing, cyanosis or edema, no calf tenderness and no pedal edema OTHER: No significant edema deformity or ecchymosis of the left ankle. Specific area referred to by the patient does not have any abnormal skin findings or swelling. Neuro: SENSORIUM/ORIENTATION: Yes oriented to person, Yes oriented to place and Yes oriented to time Skin: COMMON NORMALS: no rashes or lesions noted GENERAL SKIN EXAM: no rashes or lesions noted Course Vital Signs: Vital signs: Vital Signs Temperature 98.1 F 07/07/24 10:20 Pulse Rate 82 07/07/24 11:19 Respiratory Rate 18 07/07/24 10:20 Blood Pressure 148/76 07/07/24 11:19 Pulse Oximetry 98 07/07/24 11:19 Oxygen Delivery Me thod Room Air 05/01/25 10:20 MDM - Extremity (Nontraumatic) Medical Decision Making X-ray negative. No history of trauma. No evidence of decompensated heart failure. Patient was Shamika because she has a bioprosthetic valve. Will discharge patient home diclofenac to use as needed follow-up with primary care if not improving Lab Data Radiology Impressions Ankle X-Ray 07/07/24 10:19 Impression: Negative left ankle. All radiology interpretation(s) finalized by discharge Discharge Plan Discharge Patient Disposition: Home Clinical Impression: Ankle pain, left Condition: Stable Prescriptions: New diclofenac sodium 75 mg tablet,delayed release (DR/EC) 75 mg PO Q12H PRN (Reason: pain) Qty: 20 0RF No Action amlodipine 5 mg tablet 5 mg PO BID Qty: 180 3RF buspirone 10 mg tablet 10 mg PO BID Qty: 60 2RF mirtazapine [Remeron] 15 mg tablet 15 mg PO DAILY Qty: 30 2RF duloxetine 30 mg capsule,delayed release(DR/EC) 30 mg PO DAILY Qty: 30 2RF aspirin [Adult Aspirin Regimen] 81 mg tablet,delayed release (DR/EC) 81 mg PO DAILY Qty: 30 2RF ibuprofen 600 mg tablet 600 mg PO Q8H PRN (Reason: pain) Qty: 90 0RF hydroxyzine HCl 50 mg tablet 100 mg PO BEDTIME PRN (Reason: insomnia) Discharge Orders: Discharge ED (Routine); Ordered 07/07/24 Ordered By: Alban Gao Referrals: Tawnya Her, [Primary Care Provider, Family Practice] Discharge Diet: Usual diet Discharge Activity: Increase activity as tolerated Patient Instructions: Opioid Safety, Pain Management Activity Restrictions/Additional Instructions: Thank you for choosing [facility] for your healthcare needs today. It is very important that you follow up as instructed or that you return to the Emergency Department should you have concerns or if your condition changes or worsens in any way. You are seen emergency room with complaint of left ankle pain x-rays negative exam does not show any signs of injury or significant fluid overload. You are given diclofenac to use. 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
[2024-07-07 11:19] VITALS: BP 148/76; PULSE 82; O2SAT 98
== END 2024-07-07 11:20 | disposition home or self-care (01) ==
PROVIDERS: Emergency Provider Family Medicine; PCP Family Medicine
DX: M25.572 Pain in left ankle and joints of left foot (principal); Z79.82 Long term (current) use of aspirin; F17.290 Nicotine dependence, other tobacco product, uncomplicated; Z86.73 Personal history of transient ischemic attack (TIA), and cerebral infarction without residual deficits
CPT/HCPCS: 73610; 99283

== ENCOUNTER → 2024-07-11 09:43 | Outpatient (BNVA) | payer OTHER, SELFPAY | PROVIDERS: PCP Family Medicine; Visit Provider Psychiatry & Neurology Psychiatry | DX: F41.1 Generalized anxiety disorder (principal); F43.12 Post-traumatic stress disorder, chronic; F33.2 Major depressive disorder, recurrent severe without psychotic features; F11.20 Opioid dependence, uncomplicated; F12.20 Cannabis dependence, uncomplicated; F17.200 Nicotine dependence, unspecified, uncomplicated | CPT/HCPCS: 80061; 83036 ==

== ENCOUNTER 2024-09-06 06:46 | Outpatient (CLI) | payer MEDICAID, SELFPAY ==
[2024-07-15 10:06] VITALS: BP 137/95; BMI 27.7
[2024-08-04 13:53] VITALS: BP 137/95; BMI 27.7
--- NOTE | 2024-09-06 06:15 | USCV_ITS ---
Oneida Sampson Age: 39 Gender: F : 1985 Exam Date: 09/06/2024 07:01 Ordering Phys: Luz Elena Matson MD ([email or web address]) Technologist: BRYAN Exam Location: [facility] [place] Indication: SoB BP: 140 / 90 HR: 43 Rhythm: Sinus Technical Quality: Adequate MEASUREMENTS (Male / Female) Normal Values 2D ECHO LV Diastolic Diameter PLAX 4.8 cm 4.2 - 5.9 / 3.9 - 5.3 cm IVS Diastolic Thickness 0.8 cm 0.6 - 1.0 / 0.6 - 0.9 cm IVS Systolic Thickness 1.3 cm LVPW Diastolic Thickness 0.8 cm 0.6 - 1.0 / 0.6 - 0.9 cm LVPW Systolic Thickness 1.0 cm LVOT Diameter 1.9 cm LV Ejection Fraction 2D Teich 71.0 % LV Ejection Fraction MOD 4C 54.9 % LV Ejection Fraction MOD 2C 71.1 % LV Ejection Fraction 2C AL 68.8 % LA Diameter 2.6 cm RA Systolic Volume 4C AL 58.3 ml RA Systolic Volume 4C MOD 56.5 ml LA Sys Volume AL 45.0 cm cubed LA Sys Volume Index AL 24.8 cm cubed/m squared Aorta at Sinotubular Diameter 2.1 cm IVC Diameter 2.6 cm M-MODE LA Ao Ratio MM 1.2 AV Cusp Separation MM 1.5 cm DOPPLER AV Peak Velocity 107.0 cm/s LVOT Peak Velocity 84.0 cm/s AV Area Cont Eq vti 2.5 cm squared AV Area Cont Eq pk 2.1 cm squared MV Peak Velocity 138.0 cm/s MV Area PHT 4.6 cm squared Mitral E to A Ratio 0.5 TV Peak Velocity 213.5 cm/s TR Peak Velocity 219.0 cm/s TR Peak Gradient 19.2 mmHg TV Peak E Velocity 252.0 cm/s PV Peak Velocity 84.0 cm/s FINDINGS Left Ventricle Normal left ventricular size, systolic function and wall thickness, with no regional wall motion abnormalities. Left ventricular ejection fraction is estimated at 55 %. Grade I/IV diastolic dysfunction (abnormal relaxation filling pattern), normal to mildly elevated filling pressures. Right Ventricle The right ventricle is normal in size and function. Right Atrium The right atrium is normal in size. Left Atrium The left atrium is normal in size. Mitral Valve Moderately thickened mitral valve. Severe mitral annular calcification. No mitral valve stenosis. Moderate mitral valve regurgitation. Aortic Valve Structurally normal aortic valve without significant sclerosis or stenosis. There is no aortic regurgitation. Tricuspid Valve Structurally normal tricuspid valve without significant stenosis or regurgitation. Pulmonary artery systolic pressure is normal. Pulmonic Valve Structurally normal pulmonic valve without significant stenosis. There is no pulmonic regurgitation. Pericardium Normal pericardium without effusion. Aorta Normal ascending aorta dimension. IVC The inferior vena cava appears normal. CONCLUSIONS Normal left ventricular size, systolic function and wall thickness, with no regional wall motion abnormalities. Left ventricular ejection fraction is estimated at 55 %. Grade I/IV diastolic dysfunction (abnormal relaxation filling pattern), normal to mildly elevated filling pressures. Moderately thickened mitral valve. Severe mitral annular calcification. No mitral valve stenosis. Moderate mitral valve regurgitation. Structurally normal aortic valve without significant sclerosis or stenosis. There is no aortic regurgitation. There is no pericardial effusion. Right atrial pressure is around 5 mm of mercury. Luz Elena Matson MD (Electronically Signed) Final Date: 21 September 2024 19:46 S
== END 2024-09-06 06:47 | disposition home or self-care (01) ==
LOC: RAD 06:47
PROVIDERS: PCP Family Medicine; Visit Provider Internal Medicine Cardiovascular Disease
DX: R06.02 Shortness of breath (principal); Z95.4 Presence of other heart-valve replacement; R93.1 Abnormal findings on diagnostic imaging of heart and coronary circulation; I34.81 Nonrheumatic mitral (valve) annulus calcification; I34.0 Nonrheumatic mitral (valve) insufficiency
CPT/HCPCS: 93306

== ENCOUNTER 2024-09-13 15:54 | Outpatient (CLI) | payer MEDICAID, SELFPAY ==
[2024-08-04 13:53] VITALS: BP 137/95; BMI 27.7
--- NOTE | 2024-09-13 16:00 | USCV_ITS ---
Oneida Sampson Age: 39 Gender: F : 1985 Exam Date: 09/13/2024 15:58 Ordering Phys: Luz Elena Matson MD ([email or web address]) Technologist: BRYAN Exam Location: [facility] [place] Indication: Bruit Risk Factors: Previous Vascular Surgery: Right Brachial BP: / Left Brachial BP: / Right Left Velocity (cm/s) Spectral Plaque Velocity (cm/s) Spectral Plaque Syst/Diast Broadening Syst/Diast Broadening 112.60/21.90 Prox CCA 102.40/ 16.00 106.10/21.90 Mid CCA 123.60/ 23.70 95.70/ 21.90 Distal CCA 84.50 / 15.00 100.90/16.70 Prox ICA 64.80 / 18.60 86.70/ 16.70 Mid ICA 56.80 / 24.80 46.30/ 18.80 Distal ICA 53.20 / 16.80 78.90 ECA 72.50 1.10 ICA/CCA 0.80 Antegrade Vertebral Antegrade 60.20/ 15.30 cm/s 50.20/ 15.90 cm/s Tri Subclavian Tri 78.30 75.50 CONCLUSIONS Right ICA stenosis <50%. Left ICA stenosis <50%. Intimal thickening in the common carotid arteries and internal carotid arteries bilaterally. Normal antegrade Doppler flow noted in the right vertebral artery. Normal antegrade Doppler flow noted in the left vertebral artery. Evans Yousif MD (Electronically Signed) Final Date: 13 September 2024 16:25 S
== END 2024-09-13 15:55 | disposition home or self-care (01) ==
LOC: RAD 15:55
PROVIDERS: PCP Family Medicine; Visit Provider Internal Medicine Cardiovascular Disease
DX: I65.23 Occlusion and stenosis of bilateral carotid arteries (principal)
CPT/HCPCS: 93880

== ENCOUNTER → 2024-09-28 09:40 | Outpatient (BNVA) | payer MEDICAID, SELFPAY ==
[2024-08-04 13:53] VITALS: BP 137/95; BMI 27.7
== END ==
PROVIDERS: PCP Family Medicine; Visit Provider Obstetrics & Gynecology
DX: R87.619 Unspecified abnormal cytological findings in specimens from cervix uteri (principal)
CPT/HCPCS: 81025; 88305

== ENCOUNTER → 2024-10-05 11:59 | Outpatient (BNVA) | payer MEDICAID, SELFPAY ==
[2024-08-04 13:53] VITALS: BP 137/95; BMI 27.7
== END ==
PROVIDERS: PCP Family Medicine; Visit Provider Psychiatry & Neurology Psychiatry
DX: F11.20 Opioid dependence, uncomplicated (principal); F12.20 Cannabis dependence, uncomplicated; Z79.899 Other long term (current) drug therapy
CPT/HCPCS: 80307

== ENCOUNTER → 2024-10-11 13:11 | Outpatient (BNVA) | payer OTHER, SELFPAY ==
[2024-08-04 13:53] VITALS: BP 137/95; BMI 27.7
== END ==
PROVIDERS: PCP Family Medicine; Visit Provider Obstetrics & Gynecology
DX: N92.6 Irregular menstruation, unspecified (principal); R18.8 Other ascites
CPT/HCPCS: 76830

== ENCOUNTER 2024-10-20 18:37 | Emergency (ER) | payer MEDICAID, SELFPAY ==
[2024-08-04 13:53] VITALS: BP 137/95; BMI 27.7
[2024-10-20 18:42] VITALS: BP 109/61; PULSE 52; RESP 16; TEMP 36.7; O2SAT 97; BMI 25.0
--- NOTE | 2024-10-20 19:37 | XRR_ITS ---
PROCEDURE INFORMATION: Exam: XR Chest Exam date and time: 10/20/2024 8:12 PM Age: 39 years old Clinical indication: Other: Edema; Additional info: Peripheral edema TECHNIQUE: Imaging protocol: Radiologic exam of the chest. Views: 1 view. COMPARISON: CR XR chest 1V portable [id number] 03/15/2024 12:22 AM FINDINGS: Lungs: There is no pulmonary venous congestion. Visualized portions of the lungs are clear. Pleural spaces: Unremarkable. No pleural effusion. No pneumothorax. Heart/Mediastinum: Heart is within normal limits of size. Bones/joints: Unremarkable. XR/XR chest 1V portable [id number] IMPRESSION: No acute infiltrate.
[2024-10-20 20:02] LABS: Glucose Urine UA Negative (Normal); Nitrate Urine Negative (Negative); Specific Gravity, Urine 1.023 (1.005-1.030)
[2024-10-20 20:18] LABS: Add Urine Microscopic? YES; UA Manual Slide Review YES
[2024-10-20 20:24] LABS: Hematocrit 38.1 % (36-47); Hemoglobin 12.50 g/dL (11.27-16.99); Mean Corpuscular HGB Conc 32.8 g/dL (30-55); Mean Corpuscular Hemoglobin 29.7 pg (27-33); Mean Corpuscular Volume 90.5 fl (85-98); Nucleated Red Blood Cells % 0 %; Platelet Count 165 10^3/cmm (157-399); Red Blood Count 4.21 10^6/uL (3.85-5.65); White Blood Count 3.99 10^3/uL (3.29-11.43)
[2024-10-20 20:56] LABS: Alanine Aminotransferase 9 U/L (0-33); Albumin Level 4.3 g/dL (3.5-5.2); Alkaline Phosphatase 110 U/L (35-105); Anion Gap 16.9 (5-19); Aspartate Amino Transferase 23 U/L (0-32); Blood Urea Nitrogen 13 mg/dL (6-20); Calcium 9.3 mg/dL (8.5-10.5); Carbon Dioxide 23 mmol/L (22-29); Chloride 104 mmol/L (98-107); Creatinine Clr Calc Pharmacy 86.6476; Globulin 2.5 g/dL (1.3-4.6); Glucose 107 mg/dL (65-115); NT Pro B Type Natriuretic Pept 794 pg/mL (0-125); Osmolality Calculated 291 mOsm/kg (285-295); Potassium 3.9 mmol/L (3.5-5.1); Sodium 140 mmol/L (136-145); Total Protein 6.8 g/dL (6.6-8.7)
--- NOTE | 2024-10-21 00:58 | ED_ITS ---
HPI - Extremity Problem 2 General: Chief complaint: Extremity Problem,Nontraumatic Stated complaint: retaining water, have artificial heart valve Time Seen by Provider: 10/20/24 19:08 Source: patient Mode of arrival: ambulatory Limitations: no limitations History of Present Illness: Patient is a 39-year-old female who presents to the emergency department complaining of bilateral lower extremity swelling. 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 She is on amlodipine. States that the swelling has been chronic but specifically worsening over the past few days, and worse after standing for long periods of time. She also is reporting some abdominal swelling. No chest pain or shortness of breath. No calf tenderness or erythema reported. She does not take any diuretics. No reports of fever, malaise, chills, or any recent IV drug use. MD Complaint: extremity swelling Onset (ago): day(s) Pain Consistency: constant Location: left, right and lower extremity Associated symptoms: Deny chest pain, fever(s) or rash Related Data Previous Rx's ?Medication ?Instructions ?Recorded ibuprofen 600 mg tablet 600 mg PO Q8H PRN pain #90 t abs 05/07/24 aspirin 81 mg tablet,delayed 81 mg PO DAILY #30 tabs 0 06/05/24 release (Adult Aspirin Regimen) diclofenac sodium 75 mg 75 mg PO Q12H PRN pain #20 t abs 07/07/24 tablet,delayed release buprenorphine 8 mg-naloxone 2 mg 1 film sublingual Q24 H #30 ea 10/05/24 sublingual film duloxetine 30 mg capsule,delayed 30 mg PO DAILY #30 ca ps 10/05/24 release trazodone 100 mg tablet 200 mg (2 x 100 mg) PO .HS P RN 10/05/24 insomnia #60 tabs Allergies Allergy/AdvReac Type Severity Reaction Status Date / Time vancomycin Allergy Intermediate rash Verified 10/20/24 18:45 morphine Allergy Unknown Verified 10/20/24 18:45 Review of Systems 2 General: Reports: 10 or more systems reviewed and unremarkable except in HPI and below Const: Denies: fever(s) or chills Card: Denies: chest pain Resp: Denies: dyspnea or productive cough GI: Reports: bloating; Denies: abdominal pain, nausea, vomiting or diarrhea : Denies: flank pain Musc: Reports: extremity swelling (Bilateral lower extremities); Denies: neck pain, back pain, extremity pain, joint pain, joint swelling, joint redness, joint warmth, limited range of motion or muscle weakness Skin/Breast: Denies: rash Neuro: Denies: headache(s), numbness in extremities or weakness in extremities PFSH ED 2 PFSH: Medical History History of intravenous drug use in remission History of CVA (cerebrovascular accident) Psychiatric care Hx MRSA infection Endocarditis of tricuspid valve Valvular heart disease Hepatitis C Palpitations Major depressive disorder Surgical History S/P TAVR (transcatheter aortic valve replacement) H/O tricuspid valve replacement Family History Grandmother CAD (coronary artery disease) Cancer Diabetes Lung disease Family/Other Cancer Grandfather Stroke Brother Suicide Other Hypertension Denies family history of Clotting disorder Dementia Chronic kidney disease (CKD) Anesthesia complication Bleeding disorder Social History Smoking and tobacco/nicotine status: current every day tobacco/nicotine user e- cigarettes E-Cigarette Details: e-cigarette and with nicotine E-cig/vape details: refillable goes through one in a week Quit status (tobacco/nicotine): not considering quitting Second hand smoke exposure: Yes Alcohol intake: current Alcohol intake frequency: holidays/special occasions only Alcohol type: beer and wine Substance/Drug Use: former Date of last use: 6 months ago Adopted: No Caregiver/support person: No Lives independently: Yes Household members: other Details: [facility] - sober housing Housing: House Marital status: Single Number of children: 3 Number of grandchildren: 2 Highest education level completed: Some College, No Degree service: No Current occupational status: employed Current occupation: [employer] Current occupational exposures/hazards: No Pets and animals: No Leisure activites: music Sexually active: No Do you think of yourself as: Straight/Heterosexual Current gender identity: Female Ayesha/Religious: Mosque Special ayesha needs: No Agree to transfusion: Yes Female Reproductive History: Para: 3 Physical Exam 2 Const: COMMON NORMALS: no acute distress, patient oriented x3 and no limitations GENERAL APPEARANCE: cooperative, comfortable and well developed ORIENTATION/CONSCIOUSNESS: Yes awake, Yes oriented to person, Yes oriented to place and Yes oriented to time HENMT: COMMON NORMALS: normocephalic, atraumatic and hearing grossly normal bilaterally HEAD & SCALP: normocephalic and atraumatic Eye: COMMON NORMALS: Equal, round and reactive pupils present, EOMs intact bilaterally and conjunctivae normal CONJUNCTIVA: Yes conjunctivae normal P UPIL: Yes Equal, round and reactive pupils present Neck/C-Spine: COMMON NORMALS: full ROM, supple and no JVD Resp: COMMON NORMALS: normal respiratory effort, No retractions, No use of accessory muscles and clear to auscultation bilaterally AUSCULTATION: clear to auscultation bilaterally Cardio: COMMON NORMALS: no JVD, regular rate, regular rhythm, No clicks present (Cardio), No murmurs present (Cardio) and No rub (Cardio) RATE: r egular rate RHYTHM: regular rhythm GI: COMMON NORMALS: Normal to inspection, nondistended, normoactive bowel sounds present, Soft to palpation and non-tender AUSCULTATION: Yes normoactive bowel sounds PALPATION: Yes Soft to palpation RECTAL EXAM: d eferred OTHER: No significant abdominal swelling noted Extremity: COMMON NORMALS: full ROM and capillary refill normal NARRATIVE EXTREMITY EXAM: 2+ pitting edema bilaterally up to the p roximal shins. Neuro: COMMON NORMALS: patient oriented x3, CN's II-XII intact bilaterally, moves all extremities, no focal motor deficits and no sensory deficits noted SENSORIUM/ORIENTATION: Yes oriented to person, Yes oriented to place and Yes oriented to time Psych: COMMON NORMALS: mental status grossly normal and Normal thought process present THOUGHT PROCESS: Normal thought process present Skin: COMMON NORMALS: no rashes or lesions noted GENERAL SKIN EXAM: no rashes or lesions noted Course 2 Vital Signs: Vital signs: Vital Signs Temperature 98.1 F 10/20/24 18:42 Pulse Rate 52 L 10/20/24 18:42 Respiratory Rate 16 10/20/24 18:42 Blood Pressure 109/61 10/20/24 18:42 Pulse Oximetry 97 10/20/24 18:42 Oxygen Delivery Me thod Room Air 10/20/24 18:42 MDM - Extremity (Nontraumatic) Medical Decision Making Patient has cardiac history positive for tricuspid valve replacement secondary to IV drug use. Reporting swelling that has been worsening over the past few days, worse after standing at work all day. Chest x-ray negative, lab work was unremarkable. She sees Dr. Matson, who is on-call and who I spoke with personally and is requesting that we stop the patient's amlodipine, likely the culprit for the peripheral edema. He will also see her next week in his office, patient given 80 mg p.o. Lasix here, and stable for discharge home. Her EKG and chest x-ray were negative. Lab Data 10/20/24 20:10 10/20/24 20:10 Radiology Impressions Chest X-Ray 10/20/24 19:37 IMPRESSION: No acute infiltrate. Laboratory Results WBC 3.99 10^3/uL (3.29-11.43) 10/20/24 20:10 RBC 4.21 10^6/uL (3.85-5.65) 10/20/24 20:10 Hgb 12.50 g/dL (11.27-16.99) 10/20/24 20:10 Hct 38.1 % (36-47) 10/20/24 20:10 MCV 90.5 fl (85-98) 10/20/24 20:10 MCH 29.7 pg (27-33) 10/20/24 20:10 MCHC 32.8 g/dL (30-55) 10/20/24 20:10 RDW 13.9 % (12.1-15.1) 10/20/24 20:10 Plt Count 165 10^3/cmm (157-399) 10/20/24 20:10 MPV 11.2 fL (7.4-10.4) H 10/20/24 20:10 Neut % (Auto) 62.8 % 10/20/24 20:10 Lymph % (Auto) 24.3 % 10/20/24 20:10 Murray % (Auto) 10.3 % 10/20/24 20:10 Eos % (Auto) 1.5 % 10/20/24 20:10 Baso % (Auto) 0.8 % 10/20/24 20:10 Neut # (Auto) 2.51 10^3/uL (1.8-7.7) 10/20/24 20:10 Lymph # (Auto) 1.0 10^3/uL (0.8-4.8) 10/20/24 20:10 Murray # (Auto) 0.4 10^3/uL (0.2-0.9) 10/20/24 20:10 Eos # (Auto) 0.1 10^3/uL (0.0-0.8) 10/20/24 20:10 Baso # (Auto) 0.0 10^3/uL (0.0-0.1) 10/20/24 20:10 Nucleated RBC % (auto) 0 % 10/20/24 20:10 Nucleated RBCs # 0.0 /100WBC 10/20/24 20:10 Sodium 140 mmol/L (136-145) 10/20/24 20:10 Potassium 3.9 mmol/L (3.5-5.1) 10/20/24 20:10 Chloride 104 mmol/L (98-107) 10/20/24 20:10 Carbon Dioxide 23 mmol/L (22-29) 10/20/24 20:10 Anion Gap 16.9 (5-19) 10/20/24 20:10 BUN 13 mg/dL (6-20) 10/20/24 20:10 Creatinine 0.8 mg/dL (0.5-0.9) 10/20/24 20:10 GFR Calculation 79.0 mL/min (90-130) L 10/20/24 20:10 Glucose 107 mg/dL (65-115) 10/20/24 20:10 Calculated Osmolality 291 mOsm/kg (285-295) 10/20/24 20:10 Calcium 9.3 mg/dL (8.5-10.5) 10/20/24 20:10 Total Bilirubin 0.9 mg/dL (0.15-1.2) 10/20/24 20:10 AST 23 U/L (0-32) 10/20/24 20:10 ALT 9 U/L (0-33) 10/20/24 20:10 Alkaline Phosphatase 110 U/L (35-105) H 10/20/24 20:10 NT-Pro-B Natriuret Pep 794 pg/mL (0-125) H 10/20/24 20:10 Total Protein 6.8 g/dL (6.6-8.7) 10/20/24 20:10 Albumin 4.3 g/dL (3.5-5.2) 10/20/24 20:10 Globulin 2.5 g/dL (1.3-4.6) 10/20/24 20:10 Urine Color Yellow (Yellow) 10/20/24 19:50 Urine Appearance Clear (CLEAR) 10/20/24 19:50 Urine pH 6.0 (5-7) 10/20/24 19:50 Ur Specific [place] 1.023 (1.005-1.030) 10/20/24 19:50 Urine Protein Negative (Negative) 10/20/24 19:50 Urine Glucose (UA) Negative (Normal) 10/20/24 19:50 Urine Ketones Trace (Negative) 10/20/24 19:50 Urine Blood Negative (Negative) 10/20/24 19:50 Urine Nitrate Negative (Negative) 10/20/24 19:50 Urine Bilirubin Negative (Negative) 10/20/24 19:50 Urine Urobilinogen 1.0 mg/dL (Negative) 10/20/24 19:50 Ur Leukocyte Esterase Trace (Negative) A 10/20/24 19:50 Urine RBC 0-4 /hpf (0-2) H 10/20/24 19:50 Urine WBC 5-10 /hpf (0-5) H 10/20/24 19:50 Ur Squamous Epith Cells 10-15 /hpf (0-5) H 10/20/24 19:50 Amorphous Sediment Not Reportable 10/20/24 19:50 Urine Bacteria 1+ /hpf (NONE) H 10/20/24 19:50 All radiology interpretation(s) finalized by discharge Discharge Plan Discharge Patient Disposition: Home Clinical Impression: Lower extremity edema Condition: Stable Prescriptions: Discontinued amlodipine 5 mg tablet 5 mg PO BID Qty: 180 3RF No Action duloxetine 30 mg capsule,delayed release(DR/EC) 30 mg PO DAILY Qty: 30 2RF trazodone 100 mg tablet 200 mg PO .HS PRN (Reason: insomnia) Qty: 60 2RF buprenorphine-naloxone 8-2 mg film 1 film sublingual Q24H Qty: 30 1RF aspirin [Adult Aspirin Regimen] 81 mg tablet,delayed release (DR/EC) 81 mg PO DAILY Qty: 30 2RF ibuprofen 600 mg tablet 600 mg PO Q8H PRN (Reason: pain) Qty: 90 0RF diclofenac sodium 75 mg tablet,delayed release (DR/EC) 75 mg PO Q12H PRN (Reason: pain) Qty: 20 0RF Discharge Orders: Discharge ED (Routine); Ordered 10/20/24 Ordered By: Alen Little Referrals: Tawnya Her DO [Primary Care Provider, Family Practice] Patient Instructions: Patient Portal & Antonia Instructions Activity Restrictions/Additional Instructions: Please discontinue your amlodipine as we discussed. He will follow-up with Dr. Echeverria early next week for general reevaluation. Avoid any prolonged standing and elevate extremities when possible. Compressive wrap as needed as well. Please return with any shortness of breath, chest pain, fever, chills, or any other concerns that you have. Please continue taking other medications. 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
== END 2024-10-20 22:20 | disposition home or self-care (01) ==
PROVIDERS: Emergency Provider Physician Assistant; PCP Family Medicine
DX: R60.0 Localized edema (principal); Z79.82 Long term (current) use of aspirin; F17.290 Nicotine dependence, other tobacco product, uncomplicated; Z86.73 Personal history of transient ischemic attack (TIA), and cerebral infarction without residual deficits
CPT/HCPCS: 36415; 71045; 80053; 81001; 83880; 85025; 99284; J9999

== ENCOUNTER → 2024-11-30 10:19 | Outpatient (BNVA) | payer MEDICAID, SELFPAY ==
[2024-08-04 13:53] VITALS: BP 137/95; BMI 27.7
== END ==
PROVIDERS: PCP Family Medicine; Visit Provider Psychiatry & Neurology Psychiatry
DX: Z79.899 Other long term (current) drug therapy (principal); F11.20 Opioid dependence, uncomplicated; F12.90 Cannabis use, unspecified, uncomplicated
CPT/HCPCS: 80307